=== PATIENT | female | born 1990 | race Two or more races ===

== ENCOUNTER 2018-09-02 16:10 | Inpatient (IN) | payer MEDICAID ==
[~2018-09-02] VITALS: Ht 157.5 cm; Wt 52.0 kg
[2018-09-02] MEDS ORDERED: LORazepam 2 MG TABLET PO PRN (16:30)
[2018-09-02] MEDS ORDERED: OLANZapine 5 MG RAPDIS TABLET PO PRN (16:30)
[2018-09-02] MEDS ORDERED: ZOLPIDEM TARTRATE 10 MG TABLET PO PRN (16:30)
[2018-09-02] MEDS ORDERED: LOPERAMIDE HCL 2 MG CAPSULE PO PRN (16:30)
[2018-09-02] MEDS ORDERED: MAG HYDROX/AL HYDROX/SIMETH ES 30 ML SUSPENSION UDCUP PO PRN ×2 (16:30→19:15)
[2018-09-02] MEDS ORDERED: ACETAMINOPHEN 325 MG TABLET PO PRN ×2 (16:30→19:15)
[2018-09-02] MEDS ORDERED: MAGNESIUM HYDROXIDE SUSPENSION 30 ML UDCUP PO PRN ×2 (16:30→19:15)
[2018-09-02 17:00] VITALS: BP 140/93
[2018-09-02] MEDS ORDERED: TOPI25 PO (17:03)
[2018-09-02] MEDS ORDERED: GuaiFENesin/D-METHORPHAN [SUGAR-FREE] 200-20MG/10 ML SYRUP UDCUP PO PRN (19:15)
[2018-09-02] MEDS ORDERED: QUEtiapine FUMARATE 100 MG TABLET PO PRN (19:15)
[2018-09-02] MEDS ORDERED: TUBERCULIN, PURIFIED PROTEIN DERIVATIVE 5 TU/0.1 ML SYRINGE ID ONE (19:15)
[2018-09-02] MEDS ORDERED: HydrOXYzine PAMOATE 50 MG CAPSULE PO PRN (19:15)
[2018-09-02] MEDS ORDERED: PROMETHAZINE HCL 25 MG TABLET PO PRN (19:15)
[2018-09-02] MEDS ORDERED: IBUPROFEN 600 MG TABLET PO PRN (20:30)
[2018-09-02] MEDS ORDERED: QUEtiapine FUMARATE 100 MG TABLET PO SCH (21:00)
[2018-09-03 00:47] VITALS: BP 106/60
[2018-09-03] MEDS: FOLIC ACID 1 MG TABLET PO SCH ×2 (08:06→09:00)
[2018-09-03] MEDS: MULTIVITAMINS WITH MINERALS, THERAPEUTIC TABLET PO SCH ×2 (08:06→09:00)
[2018-09-03] MEDS: THIAMINE HCL 100 MG TABLET PO SCH ×3 (08:06→16:11)
[2018-09-03] MEDS: DULoxetine HCL 20 MG CAPSULE PO SCH ×2 (08:06→09:00)
[2018-09-03 08:23] LABS: BASOPHILS % (AUTO) 0.3 % (0.0-2.0); EOSINOPHILS % (AUTO) 0.8 % (1.0-6.0); HEMATOCRIT 37.2 % (36-46); HEMOGLOBIN 12.4 g/dL (12.0-16.0); MEAN CORPUSCULAR HGB CONC 33.3 G/dL (31.0-37.0); MEAN CORPUSCULAR VOLUME 93 fL (80-100); MONOCYTES # (AUTO) 0.5 K/uL (0.1-1.0); MONOCYTES % (AUTO) 7.8 % (2.0-9.0); NEUTROPHILS # (AUTO) 3.7 K/uL (1.8-7.7); NEUTROPHILS % (AUTO) 59.1 % (40.0-70.0); PLATELET COUNT (AUTO) 225 K/uL (150-450)
[2018-09-03 08:37] LABS: HEMOGLOBIN A1C 5.6 % (4.5-6.2)
[2018-09-03 08:45] VITALS: BP 117/62
[2018-09-03 08:55] LABS: ALANINE AMINOTRANSFERASE 11 U/L (12-78); ALBUMIN 3.5 g/dL (3.4-5.0); ALKALINE PHOSPHATASE 54 U/L (46-116); ANION GAP 11 mmol/L (8-16); ASPARTATE AMINOTRANSFERASE 9 U/L (15-37); BILIRUBIN,TOTAL 0.6 mg/dL (0.1-1.0); CALCIUM, TOTAL 9.3 mg/dL (8.8-10.5); CARBON DIOXIDE 24 mmol/L (22-29); CHLORIDE 105 mmol/L (98-107); CHOLESTEROL 154 mg/dL (131-200); CREATININE 0.55 mg/dL (0.60-1.30); GLOMERULAR FILTR. RATE CALC > 60 mL/min (>60); GLUCOSE,RANDOM 86 mg/dL (70-110); HDL CHOLESTEROL 52 mg/dL (40-60); LDL CHOL (CALC.) 93 mg/dL (0-130); POTASSIUM 3.2 mmol/L (3.5-5.1); SODIUM SERUM 140 mmol/L (136-145); TOTAL PROTEIN, SERUM 6.6 g/dL (6.4-8.2); TRIGLYCERIDES 45 mg/dL (15-150); UREA NITROGEN, BLOOD 13 mg/dL (7-18)
[2018-09-03 09:03] LABS: FREE T4 (FREE THYROXINE) < 0.10 ng/dL (0.76-1.46); THYROID STIMULATING HORMONE < 0.01 uIU/mL (0.36-3.74)
[2018-09-03] MEDS ORDERED: POTASSIUM CHLORIDE 20 MEQ ER TABLET PO ONE (09:30)
[2018-09-03 16:05] VITALS: BP 118/82
[2018-09-03] MEDS: PREGABALIN 25 MG CAPSULE PO SCH (17:00)
[2018-09-04 01:11] VITALS: BP 102/64
[2018-09-04 08:00] VITALS: BP 103/62
[2018-09-04] MEDS: FOLIC ACID 1 MG TABLET PO SCH (08:25)
[2018-09-04] MEDS: MULTIVITAMINS WITH MINERALS, THERAPEUTIC TABLET PO SCH (08:25)
[2018-09-04] MEDS: THIAMINE HCL 100 MG TABLET PO SCH ×2 (08:25→17:00)
[2018-09-04] MEDS: DULoxetine HCL 20 MG CAPSULE PO SCH (08:26)
[2018-09-04] MEDS: PREGABALIN 25 MG CAPSULE PO SCH ×3 (09:00→17:00)
[2018-09-04 09:32] LABS: AMPHET/METH SCREEN,URINE NEGATIVE (NEGATIVE); BARBITURATE SCREEN, URINE NEGATIVE (NEGATIVE); BENZODIAZEPINES SCREEN,URINE NEGATIVE (NEGATIVE); CANNABINOID SCREEN,URINE NEGATIVE (NEGATIVE); COCAINE SCREEN,URINE NEGATIVE (NEGATIVE); METHADONE SCREEN, URINE NEGATIVE (NEGATIVE); OPIATE SCREEN,URINE NEGATIVE (NEGATIVE)
[2018-09-04 09:38] LABS: APPEARANCE,URINE TURBID (CLEAR); GLUCOSE, URINE (UA) NEGATIVE (NEGATIVE); KETONES,URINE TRACE mg/dL (NEGATIVE); LEUKOCYTE ESTERASE ,URINE NEGATIVE (NEGATIVE); NITRATE,URINE NEGATIVE (NEGATIVE); OCCULT BLOOD,URINE LARGE (NEGATIVE); PH,URINE 6.5 (5.0-8.0); PROTEIN,URINE TRACE (NEGATIVE)
[2018-09-04 09:39] LABS: PHENCYCLIDINE SCREEN,URINE NEGATIVE (NEGATIVE)
[2018-09-04 09:40] LABS: BILIRUBIN,URINE PRELIM. POSITIVE (NEGATIVE)
[2018-09-04 09:57] LABS: ANION GAP 9 mmol/L (8-16); CALCIUM, TOTAL 9.3 mg/dL (8.8-10.5); CARBON DIOXIDE 27 mmol/L (22-29); CHLORIDE 105 mmol/L (98-107); CREATININE 0.64 mg/dL (0.60-1.30); FREE T4 (FREE THYROXINE) 0.98 ng/dL (0.76-1.46); GLOMERULAR FILTR. RATE CALC > 60 mL/min (>60); GLUCOSE,RANDOM 90 mg/dL (70-110); POTASSIUM 4.2 mmol/L (3.5-5.1); SODIUM SERUM 141 mmol/L (136-145); THYROID STIMULATING HORMONE 2.17 uIU/mL (0.36-3.74); UREA NITROGEN, BLOOD 14 mg/dL (7-18)
[2018-09-04 10:18] LABS: BACTERIA,URINE Few /HPF (None Seen); CALCIUM OXALATE CRYSTALS,UR Few /LPF (None Seen); SQUAMOUS EPITHELIAL CELL,UR Moderate /LPF (None Seen); WBC,URINE 0-2 /HPF (0-5)
[2018-09-04] MEDS ORDERED: PREG25 PO (13:12)
[2018-09-04] MEDS ORDERED: DULO20CA30 PO (13:12)
[2018-09-04 16:19] VITALS: BP 110/72
[2018-09-05 00:27] VITALS: BP 107/63
[2018-09-05] MEDS ORDERED: DULO20CA30 PO (07:48)
[2018-09-05] MEDS ORDERED: PREG25 PO (07:48)
[2018-09-05 08:15] VITALS: BP 112/72
[2018-09-05] MEDS: FOLIC ACID 1 MG TABLET PO SCH (08:45)
[2018-09-05] MEDS: DULoxetine HCL 20 MG CAPSULE PO SCH (08:45)
[2018-09-05] MEDS: PREGABALIN 25 MG CAPSULE PO SCH ×2 (08:46→12:35)
[2018-09-05] MEDS: MULTIVITAMINS WITH MINERALS, THERAPEUTIC TABLET PO SCH (08:46)
[2018-09-05] MEDS: THIAMINE HCL 100 MG TABLET PO SCH (08:46)
== END 2018-09-05 12:00 | disposition home or self-care (01) | DRG 754 ==
LOC: B2S 16:44
PROVIDERS: ADMIT Psychiatry & Neurology Psychiatry; ATTEND Psychiatry & Neurology Psychiatry
DX: F32.9 Major depressive disorder, single episode, unspecified (principal); F41.9 Anxiety disorder, unspecified; G89.29 Other chronic pain
CPT/HCPCS: 80307; 83036; 84439; 84443; 86592